=== PATIENT | male | born 1955 | race Caucasian/White ===

== ENCOUNTER → 2018-03-24 | Outpatient (REF) | payer BC | LOC: M LAB REF 19:35 | DX: L03.119 Cellulitis of unspecified part of limb (principal) ==

== ENCOUNTER 2018-05-07 08:31 | Day surgery (SDC) | payer BC ==
[2018-05-07] MEDS ORDERED: MIDAZOLAM INJ 2 MG/2 ML VIAL (J2250) As Ordered (09:14)
[2018-05-07] MEDS ORDERED: LIDOCAINE 2% INJ 100 MG/5 ML SDV (FOR ANES.) As Ordered (09:14)
[2018-05-07] MEDS ORDERED: ONDANSETRON 4MG/2ML VIAL (J2405) As Ordered (09:14)
[2018-05-07] MEDS ORDERED: fentaNYL 100 MCG/2 ML INJECTION (J3010) As Ordered (09:14)
[2018-05-07] MEDS ORDERED: PROPOFOL 200 MG/20 ML VIAL As Ordered ×2 (09:14→11:27)
[2018-05-07 09:16] LABS: BEDSIDE GLUCOSE 309 MG/DL (80-115)
[2018-05-07] MEDS: VANCOMYCIN HCL 1,000 MG, VIAL MATE ADAPTER 1 EACH in D5W 250 ML IV (09:22)
[2018-05-07] MEDS: LR 1,000 ML IV (09:25)
[2018-05-07] MEDS ORDERED: HumaLOG INSULIN (NovoLOG) PER UNIT SC ×4 (09:30→12:00)
[2018-05-07] MEDS: HumaLOG INSULIN (NovoLOG) PER UNIT SC (09:37)
[2018-05-07 10:19] LABS: BEDSIDE GLUCOSE 345 MG/DL (80-115)
[2018-05-07 10:25] LABS: BEDSIDE GLUCOSE 334 MG/DL (80-115)
[2018-05-07] MEDS: LIDOCAINE 2% MDV 20 ML VIAL As Ordered (10:25)
[2018-05-07] MEDS: ROPIvacaine 0.5% 30 ML INJECTION (J2795 PER 1MG) As Ordered (11:04)
[2018-05-07] MEDS: NEOSPORIN GU IRRIG 20 ML VIAL As Ordered (11:09)
[2018-05-07] MEDS: BACITRACIN PWD 50,000 UNITS VIAL As Ordered (11:09)
[2018-05-07] MEDS ORDERED: ePHEDrine SULFATE 25 MG/5 ML(5MG/ML) SYRINGE As Ordered (11:23)
[2018-05-07 11:24] LABS: BEDSIDE GLUCOSE 270 MG/DL (80-115)
[2018-05-07] MEDS: VANCOMYCIN HCL 500 MG/10 ML VIAL (J3370) As Ordered (11:36)
[2018-05-07] MEDS: dexameTHASONE 4 MG/ML 1ML VIAL (J1100) As Ordered (11:38)
== END 2018-05-07 13:07 | disposition home or self-care (01) ==
LOC: M SDC 08:31
DX: S93.104A Unspecified dislocation of right toe(s), initial encounter (principal); L03.031 Cellulitis of right toe; L97.512 Non-pressure chronic ulcer of other part of right foot with fat layer exposed; E11.42 Type 2 diabetes mellitus with diabetic polyneuropathy; L84 Corns and callosities; E11.621 Type 2 diabetes mellitus with foot ulcer; E11.51 Type 2 diabetes mellitus with diabetic peripheral angiopathy without gangrene; T88.59XD Other complications of anesthesia, subsequent encounter; E03.9 Hypothyroidism, unspecified; R06.02 Shortness of breath; J44.9 Chronic obstructive pulmonary disease, unspecified; R06.83 Snoring; I48.3 Typical atrial flutter; I10 Essential (primary) hypertension; E78.00 Pure hypercholesterolemia, unspecified; N40.1 Benign prostatic hyperplasia with lower urinary tract symptoms; E66.3 Overweight; Z88.1 Allergy status to other antibiotic agents; Z79.899 Other long term (current) drug therapy; Z79.84 Long term (current) use of oral hypoglycemic drugs; Z79.01 Long term (current) use of anticoagulants; Z85.828 Personal history of other malignant neoplasm of skin; X58.XXXA Exposure to other specified factors, initial encounter; Y93.89 Activity, other specified; Y92.89 Other specified places as the place of occurrence of the external cause; Y99.8 Other external cause status
CPT/HCPCS: 28112

== ENCOUNTER → 2018-05-25 | Outpatient (REF) | payer BC | LOC: M LAB REF 16:32 | DX: L03.119 Cellulitis of unspecified part of limb (principal) | CPT/HCPCS: 87186 ==

== ENCOUNTER → 2019-01-28 | Outpatient (REF) | payer BC ==
[~2019-01-28] MED LIST: FINA5TAB2 PO; GLYB5TA PO; LEVO25TA5 PO; LEVO500T3 PO; METF10004 PO; METO25TA4 PO; PRAD150C6 PO; VICT18IN SC
== END ==
LOC: M LAB REF 12:08
PROVIDERS: ATTEND Podiatrist
DX: M79.674 Pain in right toe(s) (principal)

== ENCOUNTER → 2019-04-13 | Outpatient (REF) | payer BC | LOC: M LAB REF 13:26 | PROVIDERS: ATTEND Podiatrist | DX: L03.031 Cellulitis of right toe (principal); M79.674 Pain in right toe(s) ==

== ENCOUNTER → 2024-01-05 | Outpatient (REF) | payer MEDICARE, MEDICAID ==
[~2024-01-05] MED LIST changes: -GLYB5TA PO; +GLYB5TAB6 PO; +LEVO1TAB39 PO; -LEVO500T3 PO
== END ==
LOC: M LAB REF 16:31
PROVIDERS: ATTEND Podiatrist
DX: L97.519 Non-pressure chronic ulcer of other part of right foot with unspecified severity (principal)

== ENCOUNTER → 2024-02-09 | Outpatient (REF) | payer MEDICARE, MEDICAID | LOC: M LAB REF 10:20 | PROVIDERS: ATTEND Podiatrist | DX: L03.031 Cellulitis of right toe (principal) ==

== ENCOUNTER → 2024-04-25 | Outpatient (REF) | payer MEDICARE, MEDICAID | LOC: M LAB REF 16:29 | PROVIDERS: ATTEND Podiatrist | DX: L03.031 Cellulitis of right toe (principal) ==